=== PATIENT | male | born 1980 | race Caucasian/White ===

== ENCOUNTER → 2016-10-16 | Day surgery (SDC) | payer OTHER ==
--- NOTE | 2016-10-15 16:40 | History & Physical Pre-Op ---
General Information and HPI History of Present Illness: Jesse is a 36-year-old male with a long-standing and worsening complaint of heel pain involving both left and right feet. The patient has undergone an extended course of conservative care, including shoe gear and activity modification, rest, immobilization and courses of NSAIDs. None of this is yielded him any significant relief. Today for preoperative surgical consultation. Allergies/Medications Allergies: Coded Allergies: No Known Allergies (10/12/16) Past History Medical History Gastrointestinal: GERD Surgical History Pertinent Surgical History: non-contributory Review of Systems Review of Systems: Unremarkable except for that noted in history of present illness Exam & Diagnostic Data Physical Exam: Lungs clear bilaterally. Heart sounds rate and rhythm regular. Lower extremity physical exam demonstrates intact pedal pulses bilaterally. Both dorsalis pedis and posterior tibial arteries are palpable bilaterally. Patient without any sensory motor deficits. Deep tendon reflexes grossly intact. Patient noted to have significant pain with palpation to the plantar medial aspects of both the left and right heels. Ankle range of motion noted to be diminished, especially in dorsiflexion bilaterally. Negative Tinel sign noted with percussion of the posterior tibial nerve bilaterally. Assessment/Plan Assessment/Plan: Gastrocnemius equinus bilaterally and plantar fasciitis bilaterally. A lengthy discussion reviewing both surgical and conservative options was held the patient at bedside and the patient elects to go forward with surgery despite the risks. As Ranked By This Provider Problem List: 1. Plantar fascial fibromatosis Attending MD Review Statement Attending Statement Attending MD Statement: examined this patient
[~2016-10-16] VITALS: Ht 175.3 cm; Wt 127.0 kg
--- NOTE | 2016-10-16 08:46 | Operative Report ---
Operative/Inv Procedure Report Surgery Date: 10/16/16 Name of Procedure: 1 gastrocnemius recession right 2 gastrocnemius recession left 3 plantar fasciotomy right 4 plantar fasciotomy left 5 plantar fasciectomy right 6 plantar fasciectomy left Pre-Operative Diagnosis: 1 gastrocnemius equinus right 2 gastrocnemius equinus left 3 plantar fasciitis right 4 plantar fasciitis left Post-Operative Diagnosis: The same Estimated Blood Loss: scant Surgeon/Oil Dispatcher: MAINOR SPENCE DPM Anesthesia: moderate sedation, block Operative/Procedure Note Note: After obtaining informed consent the patient was brought to the operating room and placed on the operating table in supine position. The patient was then securely fastened to the operating table utilizing safety belt. After administration of IV sedation, 10 mL of 0.5% Marcaine plain was infiltrated about the patient's left and right ankles. 2 well-padded calf tourniquets were placed about the patient's left and right upper cast. 2 g of Ancef were delivered intravenously times one dose. The left and right lower extremities within scrubbed prepped and draped in usual aseptic manner. The right lower extremity was elevated to examine to limb, at which point the calf tourniquet was inflated 250 mmHg. Attention was directed to the distal medial right leg, where a linear incision was made 2 fingerbreadths distal to the medial have a gastrocnemius muscle. The dissection was then carried down to the medial margin of the gastroc fascia, where an interval was developed between the peritenon and the fascia. A gastrocnemius recession was then performed. The deep tissues were reapproximated 4-0 Vicryl and the skin edges reapproximated 4-0 nylon. Attention was then directed to the distal foot, where portals were developed overlying the proximal origin of the medial slip of the plantar fascia. The tissue was then ablated with 4 W of energy utilizing the Taktio micro-ablator. The dissection was then developed down to the medial margin of the plantar fascia which was released from its origin on the medial tubercle calcaneal tuberosity. Skin edges were then reapproximated 4-0 Vicryl. The incisions were dressed with [place] dressings and Coban. The tourniquet was then deflated and the left lower extremity was elevated to exsanguinate the limb. At this point, the calf tourniquet was inflated 250 mmHg. Attention was directed to the distal medial left leg, where a linear incision was made 2 fingerbreadths distal to the medial have a gastrocnemius muscle. He dissection was then carried down to the medial margin of the gastroc fascia, where an interval was developed between the fascia and the peritenon. A gastrocnemius recession was then performed. Deep tissues reapproximated with 4-0 Vicryl and the skin edges reprepped with 4-0 nylon. Attention was then directed to the distal foot, where portals were developed overlying the proximal origin of the medial slip of the plantar fascia. The tissue was then ablated with 4 W of energy utilizing the Taktio micro-ablator. A dissection was then carried down to the medial margin of the plantar fascia which was released from its origin on the medial tubercle calcaneal tuberosity. The incision was closed with 4-0 Vicryl and 4-0 nylon and the incisions were dressed with [place] dressings and Coban. The patient was noted to tolerate both procedure and anesthesia well and the patient was transported from the operating room to recovery with vital signs stable best assess intact all digits bilateral feet.
== END ==
LOC: STS 03:57
DX: M21.6X1 Other acquired deformities of right foot (principal); M21.6X2 Other acquired deformities of left foot; M72.2 Plantar fascial fibromatosis; K21.9 Gastro-esophageal reflux disease without esophagitis
CPT/HCPCS: J0690; J2001; J2250